=== PATIENT | male | born 1945 | race Caucasian/White ===

== ENCOUNTER → 2017-02-15 | Day surgery (SDC) | payer OTHER ==
[2017-02-07 08:38] VITALS: Ht 175.3 cm; Wt 102.3 kg
[~2017-02-15] VITALS: Ht 175.3 cm; Wt 102.3 kg
[~2017-02-15] MED LIST: AMLO-114 PO; APIX1TAB3 PO; ATOR-24 PO; BOTULINUM TOXIN TYPE A 100 UNIT VIAL XX ONE; CETI10TA84 PO; CLOP1TAB15 PO; CYAN3INJ IM; DILT240C75 PO; DOXY-300 PO; FLUN0.02 NAE; FURO40TA3 PO; GABA400C PO; INSDGI SC; INSUINJ7 SQ; LEVO25TA5 PO; LIDOCAINE HCL 2% 2 ML VIAL (20MG/ML) ONE; LISI10TA PO; METH750T PO; METO-551 PO; MULTCAP33 PO; NAPR-1169 PO; OMEP40CA41 PO; OXYC1CAP5 PO; POTA20TA16 PO; PROPOFOL IV EMULSION 10 MG/ML 20 ML VIAL IV ONE; SILD1TAB19 PO; SIMV40TA4 PO; SODIUM CHLORIDE 0.9% 500ML 500 ML IV ONE; TAMS0.4C38 PO; [UNRECOGNIZED DRUG - CODE] PO
[2017-02-15 11:27] VITALS: TEMP 36.6
--- NOTE | 2017-02-15 12:17 | Endo History and Physical ---
History & Physical Date of Service: Feb 15, 2017. Chief Complaint: Achalasia of Cardia W/Botox Referring Physician: Benito History of Present Illness achalasia Past Medical History Diabetes, Neurological Disorder, Arthritis, Reflux, High Cholesterol, Hypertension, CVA/TIA Past Surgical History Hx Cardiac Surgery: No Hx Internal Defibrillator: No Hx Pacemaker: No Hx Abdominal Surgery: No Hx of Implantable Prosthesis: No Hx Post-Op Nausea and Vomiting: No Hx Cancer Surgery: No Hx Thoracic Surgery: No Hx Orthopedic: Yes (LT SHOULDER) Hx Urinary Tract Surgery: No Family History None Social History Smoking Status: Never Smoker Hx Substance Use: No Hx Alcohol Use: No Allergies Coded Allergies: Aspirin (Verified Adverse Reaction, Unknown, dizzy, 02/15/17) Dipyridamole (Verified Adverse Reaction, Unknown, dizzy, 02/15/17) Current Medications Reported Home Medications Medications Dose Route/Sig Max Daily Dose Days Date Category Dose Instructions Diltiazem Hcl (Diltiazem Hcl Extended Release) 240 Mg Cap 1 Cap PO QAM 02/07/17 Reported Maox (Magnesium Oxide) 420 Mg Tab 1 Tab PO QAM 02/07/17 Reported Flomax (Tamsulosin Hcl) 0.4 Mg Cap 0.4 Mg PO HS 02/07/17 Reported Lipitor (Atorvastatin Calcium) 40 Mg Tab 40 Mg PO HS 02/07/17 Reported Klor-Con (Potassium Chloride) 20 Meq Tabcr 20 Meq PO QAM 02/07/17 Reported Lasix (Furosemide) 40 Mg Tab 40 Mg PO QAM 02/07/17 Reported Doxycycline (Doxycycline (Monohydrate)) 100 Mg Cap 1 Tab PO HS 02/07/17 Reported Preservision Areds (Multiple Vitamins W/ Minerals) 1 Cap Cap 1 Cap PO BID 02/07/17 Reported Eliquis (Apixaban) 5 Mg Tab 5 Mg PO BID 02/07/17 Reported Levothyroxine Sodium 25 Mcg Tab 1 Tab PO QAM 02/07/17 Reported Oxycodone Hcl 5 Mg Cap 1 Cap PO Q6H PRN 02/07/17 Reported Prilosec (Omeprazole) 40 Mg Cap 2 Cap PO BID 02/07/17 Reported Naprosyn (Naproxen) 500 Mg Tab 500 Mg PO BID PRN 02/07/17 Reported Lopressor (Metoprolol Tartrate) 50 Mg Tab 0.5 Tab PO BID 02/07/17 Reported Zocor (Simvastatin) 40 Mg Tab 40 Mg PO QAM 02/07/17 Reported Sildenafil Citrate (Sildenafil Citrate (Pulmonary) 20 Mg Tab 100 Mg PO UD PRN 02/07/17 Reported Prinivil (Lisinopril) 10 Mg Tab 2 Tabs PO QAM 02/07/17 Reported Neurontin (Gabapentin) 400 Mg Cap 2 Cap PO TID 02/07/17 Reported Zyrtec (Cetirizine HCl) 10 Mg Tab 10 Mg PO QAM 02/13/14 Reported Robaxin (Methocarbamol) 750 Mg Tab 2 Tabs PO BID 06/05/13 Reported Prinivil (Lisinopril) 10 Mg Tab 10 Mg PO QPM 06/05/13 Reported Lantus (Insulin Glargine) Vial 22 Units SC QPM 06/05/13 Reported Lantus (Insulin Glargine) Vial 16 Units SC QAM 06/05/13 Reported Novolin R (Insulin) Inj Units SQ ACHS 06/05/13 Reported PER SLIDING SCALE Flunisolide (Flunisolide (Nasal)) 0.025 % Spr 2 Sprays DESTINY DAILY PRN 06/05/13 Reported Vitamin B-12 Inj (Cyanocobalamin) Inj 1,000 Mcg IM MONTHLY 06/05/13 Reported Plavix (Clopidogrel Bisulfate) 75 Mg Tab 75 Mg PO QAM 06/05/13 Reported Norvasc (Amlodipine Besylate) 10 Mg Tab 10 Mg PO QAM 06/05/13 Reported Vital Signs Weight (Kilograms): 102.27 Height (Feet): 5 Height (Inches): 9 Date Time Temp Pulse Resp B/P (MAP) Pulse Ox O2 Delivery O2 Flow Rate FiO2 02/15/17 11:27 36.6 58 22 158/72 (100) 97 Room Air Physical Exam General Appearance: no apparent distress Respiratory/Chest: Respiratory effort: no dyspnea Cardiovascular: Heart Auscultation: RRR Abdomen: Inspection & Palpation: soft Assessment and Plan Achalasia - Botox
--- NOTE | 2017-02-15 12:36 | Anesthesiology Progress Note ---
Anesthesia Post Op Note Date & Time Feb 15, 2017 at 12:35 Vital Signs Pain Intensity: 0 Vital Signs Past 12 Hours Date Time Temp Pulse Resp B/P (MAP) Pulse Ox O2 Delivery O2 Flow Rate FiO2 02/15/17 11:27 36.6 58 22 158/72 (100) 97 Room Air Notes Mental Status: alert / awake / arousable, participated in evaluation Pt Amnestic to Procedure: Yes Nausea / Vomiting: adequately controlled Pain: adequately controlled Airway Patency, RR, SpO2: stable & adequate BP & HR: stable & adequate Hydration State: stable & adequate Anesthetic Complications: no major complications apparent
--- NOTE | 2017-02-15 12:51 | Discharge Instructions ---
Endoscopy Patient Instructions Date / Procedure(s) Performed Feb 15, 2017. EGD Allergy Information Coded Allergies: Aspirin (Verified Adverse Reaction, Unknown, dizzy, 02/15/17) Dipyridamole (Verified Adverse Reaction, Unknown, dizzy, 02/15/17) Discharge Date / Findings Feb 15, 2017. Achalasia. GEJ injected with botox. Medication Instructions Stopped Medication(s): Eliquis last taken on 02/12/17 Plavix last taken on 02/12/17 Resume Eliquis and Plavix tomorrow Provider Instructions Activity Restrictions - No exercising or heavy lifting for 24 hours. - Do not drink alcohol the day of the procedure. - Do not drive a car or operate machinery until the day after the procedure. - Do not make any important decisions or sign important papers in 24 hours after the procedure. Following Day: - Return to full activity which may include returning to work/school. Diet Start your diet with liquids and light foods (jello, soup, juice, toast). Then eat your usual diet if not nauseated. Treatment For Common After Affects For mild abdominal pain, bloating, or excessive gas: - Rest - Eat lightly - Lie on right side Follow-Up Information Follow-up with Benito as scheduled Anesthesia Information What You Should Know You have had a procedure that required some medicine to reduce anxiety and discomfort. This treatment is called moderate sedation. After receiving the treatment, you may be sleepy, but you will be able to breathe on your own. The effects of the treatment may last for several hours. Follow these instructions along with Activity/Diet recommendations noted above: * Do NOT do anything where dizziness or clumsiness would be dangerous. * Rest quietly at home today, then you can be up and about tomorrow. * Have a responsible person stay with you the rest of today. * You may have had an I.V. today. If so, you may take the dressing off later today. Recommendations Call your doctor if: * Trouble breathing * Continuous vomiting for more than 24 hours * Temperature above 101 degrees * Severe abdominal pain or bloating * Pain not relieved by pain medicine ordered * There is increased drainage or redness from any incision * A large amount of rectal bleeding greater than 2-3 tablespoons. (If you had a polyp/s removed or have hemorrhoids, a small amount of blood - from the rectum is to be expected.) * You have any unanswered questions or concerns. IN THE EVENT OF A SERIOUS EMERGENCY, GO TO THE NEAREST EMERGENCY ROOM Your discharge instructions were prepared by provider Joaquim Sweeney. Patient Instructions Signature Page Candelario Estevez Patient (or Guardian) Signature/Date: I have read and understand the instructions given to me by my caregivers. Caregiver/RN/Doctor Signature/Date: The above-named patient and/or guardian has received patient instructions on this date. + Original Patient Signature Page (only) stays with chart. Please make copy for patient.
--- NOTE | 2017-02-15 12:51 | GI REPORT ---
Procedure Date: 02/15/2017 11:59 AM Procedure: Upper GI endoscopy Indications: For botulinum toxin injection of achalasia Medicines: See the Anesthesia note for documentation of the administered medications Complications: No immediate complications. Estimated Blood Loss: Estimated blood loss: none. Procedure: Pre-Anesthesia Assessment: - ASA Grade Assessment: III - A patient with severe systemic disease. After obtaining informed consent, the endoscope was passed under direct vision. Throughout the procedure, the patient's blood pressure, pulse, and oxygen saturations were monitored continuously. The scope was introduced through the mouth, and advanced to the second part of duodenum. The upper GI endoscopy was accomplished without difficulty. The patient tolerated the procedure well. - Prior to the procedure, risks of botox injection were reviewed, including dysphagia, dysarthria. Findings: The GE junction was at 40 cm. There was a mild ring at the GE junction. The esophagus did not appear dilated; there was no fluid in the esophagus. A few tertiary contractions were seen. The stomach and duodenum were normal. 100 units of Botox in 4 cc of saline were injected in 1 cc aliquots in 4 quadrants at the GE junction. Impression: - Ring at GE junction. GE junction injected with Botox. Recommendation: - Discharge patient to home. Joaquim Oliver M.D. Joaquim Oliver MD 02/15/2017 12:50:54 PM This report has been signed electronically. Note Initiated On: 02/15/2017 11:59 AM I attest to the content of the Intraoperative Record and orders documented therein, exceptions below
[2017-02-15 12:58] VITALS: BP 151/74; PULSE 65; O2SAT 94
== END | disposition home or self-care (01) ==
LOC: C.GI 10:15
PROVIDERS: ATTEND Internal Medicine Gastroenterology
DX: K22.0 Achalasia of cardia (principal); E11.9 Type 2 diabetes mellitus without complications; M19.90 Unspecified osteoarthritis, unspecified site; E78.00 Pure hypercholesterolemia, unspecified; I10 Essential (primary) hypertension; Z86.73 Personal history of transient ischemic attack (TIA), and cerebral infarction without residual deficits; Z79.899 Other long term (current) drug therapy; Z79.4 Long term (current) use of insulin; Z79.02 Long term (current) use of antithrombotics/antiplatelets

== ENCOUNTER 2019-09-16 05:44 | Inpatient (IN) ==
--- NOTE | 2019-09-05 09:42 | PAT Medication Instructions ---
Medication Instructions Date of Service September 05, 2019 Home Medications Medications Eucerin 1 applic TOPICAL BID PRN 03/26/18 [History Confirmed 08/28/19] Lantus U-100 Insulin 20 unit SUBCUT BID 03/26/18 [History Confirmed 08/28/19] apixaban 5 mg PO BID 03/26/18 [History Confirmed 08/28/19] atorvastatin 20 mg PO HS 03/26/18 [History Confirmed 08/28/19] clopidogrel 75 mg PO QAM 03/26/18 [History Confirmed 08/28/19] diclofenac sodium 2 g TOPICAL BID PRN 03/26/18 [History Confirmed 08/28/19] diltiazem HCl 120 mg PO QAM 03/26/18 [History Confirmed 08/28/19] levothyroxine [Synthroid] 25 mcg PO QAM 03/26/18 [History Confirmed 08/28/19] lidocaine 1 dose TOPICAL UD PRN 03/26/18 [History Confirmed 08/28/19] metoprolol tartrate 50 mg PO QAM 03/26/18 [History Confirmed 08/28/19] omeprazole 40 mg PO BID 03/26/18 [History Confirmed 08/28/19] oxycodone 5 mg PO 5XD PRN 03/26/18 [History Confirmed 08/28/19] tamsulosin 0.4 mg PO HS 03/26/18 [History Confirmed 08/28/19] Ocuvite with Lutein 1 tab PO BID 01/09/19 [History Confirmed 08/28/19] bumetanide 0.5 mg PO QAM 08/28/19 [History Confirmed 08/28/19] cyanocobalamin (vitamin B-12) 1,000 mcg PO QAM 08/28/19 [History Confirmed 08/28/19] empagliflozin 25 mg PO QAM 08/28/19 [History Confirmed 08/28/19] gabapentin 800 mg PO BID 08/28/19 [History Confirmed 08/28/19] lisinopril 10 mg PO BID 08/28/19 [History Confirmed 08/28/19] metformin 500 mg PO QAM 08/28/19 [History Confirmed 08/28/19] Take morning of surgery With a small sip of water, OTHERWISE NOTHING TO EAT OR DRINK AFTER MIDNIGHT: Insulin Dependent Diabetic Patients * Test your blood sugar the morning of surgery * If Blood Sugar is GREATER THAN 150, take HALF of your regular dose of: * If Blood Sugar is LESS THAN 150, DO NOT TAKE ANY: Other Notes If you have any questions please call us at [phone] or [phone] or or [phone]
--- NOTE | 2019-09-05 09:48 | PAT Medication Instructions ---
Medication Instructions Date of Service September 05, 2019 Home Medications Eucerin 1 applic TOPICAL BID PRN Lantus U-100 Insulin 20 unit SUBCUT BID apixaban 5 mg PO BID atorvastatin 20 mg PO HS clopidogrel 75 mg PO QAM diclofenac sodium 2 g TOPICAL BID PRN diltiazem HCl 120 mg PO QAM levothyroxine [Synthroid] 25 mcg PO QAM lidocaine 1 dose TOPICAL UD PRN metoprolol tartrate 50 mg PO QAM omeprazole 40 mg PO BID oxycodone 5 mg PO 5XD PRN tamsulosin 0.4 mg PO HS Ocuvite with Lutein 1 tab PO BID bumetanide 0.5 mg PO QAM cyanocobalamin (vitamin B-12) 1,000 mcg PO QAM empagliflozin 25 mg PO QAM gabapentin 800 mg PO BID lisinopril 10 mg PO BID metformin 500 mg PO QAM ASK your prescriber and surgeon clopidogrel 75 mg PO QAM apixaban 5 mg PO BID STOP taking 2 weeks before surgery Ocuvite with Lutein 1 tab PO BID STOP taking 24 hours before surgery lidocaine 1 dose TOPICAL UD PRN diclofenac sodium 2 g TOPICAL BID PRN Eucerin 1 applic TOPICAL BID PRN DO NOT take the morning of surgery metformin 500 mg PO QAM lisinopril 10 mg PO BID empagliflozin 25 mg PO QAM bumetanide 0.5 mg PO QAM cyanocobalamin (vitamin B-12) 1,000 mcg PO QAM Take morning of surgery With a small sip of water, OTHERWISE NOTHING TO EAT OR DRINK AFTER MIDNIGHT: gabapentin 800 mg PO BID metoprolol tartrate 50 mg PO QAM omeprazole 40 mg PO BID oxycodone 5 mg PO 5XD PRN (okay to take up to 4 hours prior to surgery if needed) diltiazem HCl 120 mg PO QAM levothyroxine [Synthroid] 25 mcg PO QAM Take evening before surgery gabapentin 800 mg PO BID lisinopril 10 mg PO BID omeprazole 40 mg PO BID oxycodone 5 mg PO 5XD PRN (if needed) tamsulosin 0.4 mg PO HS atorvastatin 20 mg PO HS Lantus U-100 Insulin 20 unit SUBCUT BID Insulin Dependent Diabetic Patients * Test your blood sugar the morning of surgery * If Blood Sugar is GREATER THAN 150, take HALF of your regular dose of: Lantus U-100 Insulin (10 units) * If Blood Sugar is LESS THAN 150, DO NOT TAKE ANY: Lantus U-100 Insulin * Other Notes If you have any questions please call us at [phone] or [phone] or [phone] or [phone]
--- NOTE | 2019-09-05 10:14 | Anesthesiology Consultation ---
Date of Service September 05, 2019 Assessment & Plan (1) Encounter for pre-operative examination: Chart Review Chart Review: Acceptable Risk for Surgery and Patient seen in Pre Admission Testing Seen by cardio 08/20/19= Lisinopril decreased to 10mg BID and Cardizem CD dose increased for better rate control. ECHO ordered. Pt did have episode of syncope when leaving (BP med was decreased). Addendum to note on 08/22/19- ECHO reviewed- "He should be cleared at low risk from a cardiac standpoint for upcoming cervical spine surgery." Seen by PCP 07/04/19= DM not optimally controlled at that time. Metformin initiated. CKD stage III -stable. Ongoing cervical spine stenosis with persistent pain. On Plavix due to CVA history. F/u six months History Surgery Operation Date: 09/16/19 07:45 Proposed Procedures p C3-C4 Anterior Cervical Discectomy Fusion, Possible C4-C8 Hardware Removal, Spinal Cord Monitoring - Seymour Valerio, Height/Weight Height: 5 ft 9 in Weight: 88.5 kg Allergies Allergy/AdvReac Type Severity Reaction Status Date / Time No Known Allergies Allergy Verified 02/07/19 11:31 Medications Home Medications Medication Instructions Recorded Confirmed Last Taken Eucerin 1 applic TOPICAL BID PRN 03/26/18 08/28/19 03/29/18 Lantus U-100 Insulin 20 unit SUBCUT BID 03/26/18 08/28/19 01/24/19 apixaban 5 mg PO BID 03/26/18 08/28/19 01/23/19 atorvastatin 20 mg PO HS 03/26/18 08/28/19 01/24/19 clopidogrel 75 mg PO QAM 03/26/18 08/28/19 01/23/19 diclofenac sodium 2 g TOPICAL BID PRN 03/26/18 08/28/19 03/23/18 diltiazem HCl 120 mg PO QAM 03/26/18 08/28/19 01/25/19 levothyroxine [Synthroid] 25 mcg PO QAM 03/26/18 08/28/19 01/25/19 lidocaine 1 dose TOPICAL UD PRN 03/26/18 08/28/19 03/27/18 metoprolol tartrate 50 mg PO QAM 03/26/18 08/28/19 01/25/19 omeprazole 40 mg PO BID 03/26/18 08/28/19 01/25/19 oxycodone 5 mg PO 5XD PRN 03/26/18 08/28/19 01/24/19 21:00 tamsulosin 0.4 mg PO HS 03/26/18 08/28/19 01/23/19 Ocuvite with Lutein 1 tab PO BID 01/09/19 08/28/19 01/23/19 bumetanide 0.5 mg PO QAM 08/28/19 08/28/19 Unknown cyanocobalamin (vitamin B-12) 1,000 mcg PO QAM 08/28/19 08/28/19 Unknown empagliflozin 25 mg PO QAM 08/28/19 08/28/19 Unknown gabapentin 800 mg PO BID 08/28/19 08/28/19 Unknown lisinopril 10 mg PO BID 08/28/19 08/28/19 Unknown metformin 500 mg PO QAM 08/28/19 08/28/19 Unknown Past Medical History Medical History Atrial fibrillation CURRENTLY CONTROLLED Chronic back pain CKD (chronic kidney disease) stage 3, GFR 30-59 ml/min Diabetes mellitus, type 2 IDDM GERD (gastroesophageal reflux disease) CURRENTLY CONTROLLED Hyperlipidemia Hypertension Hypothyroidism On anticoagulant therapy per pt he is on Plavix and Eliquis Osteoarthritis Stroke 2013 per PCP note- no residual deficits - on Plavix Past Family History Family History Father No problems noted. Mother No problems noted. Other No family history of adverse response to anesthesia Past Surgical History Surgical History History of bilateral cataract extraction History of colonoscopy History of esophagogastroduodenoscopy (EGD) with dilation due to Schatzki's ring History of repair of left rotator cuff X 2 History of tooth extraction wisdom teeth Status post cervical spinal fusion normal rom Past Anesthesia History No Hx of Anesthesia Complications and No Family Hx of Anesthesia Complications History of PONV No Hx of PONV and No Hx of Motion Sickness Social History Smoking Status: Never smoker Do You Dip or Chew Tobacco: No Hx Alcohol Use: No Hx Substance Use: No substance use type: does not use Review of Systems Patient denies chest pain, shortness of breath, dyspnea on exertion, cough, wheezing, palpitations. No hx of seizures, GA, apnea/snoring. No hx of blood clots or blood transfusions Physical Exam Vital Signs VITALS BP 130/66 P 55 TEMP 98.3 SP02 100% RESP 16 Constitutional no acute distress ENMT Mouth: no TMJ clicking, no chipped teeth and no loose teeth Thyromental Distance: > or= 3.5 Finger Breadths (3.5) Mallampati Class: III Denies missing teeth Neck + limited neck extension (significant ) Respiratory normal respiratory effort; no respiratory distress Auscultation: lungs clear to auscultation bilaterally; no wheezes Cardiovascular Rate/Rhythm: regular rate and regular rhythm Heart Sounds: no murmur Vessels: no carotid bruit Heart sounds diminished throughout Musculoskeletal Spine: + pain with cervical ROM Neurologic moves all extremities Psychiatric Orientation: alert Testing Laboratory Results 09/05/19 09:53 09/05/19 09:53 PT 11.5 Seconds (9.0-12.0) 09/05/19 09:53 INR 1.1 (0.9-1.1) 09/05/19 09:53 APTT 31.3 Seconds (21.0-31.0) H 09/05/19 09:53 Urine Color Yellow 09/05/19 09:53 Urine Appearance Clear (Clear) 09/05/19 09:53 Urine pH 5.0 (4.5-7.5) 09/05/19 09:53 Ur Specific Bennett 1.015 (1.000-1.030) 09/05/19 09:53 Urine Protein Negative (Negative) 09/05/19 09:53 Urine Glucose (UA) 3+ (Negative) H 09/05/19 09:53 Urine Ketones Negative (Negative) 09/05/19 09:53 Urine Nitrite Negative (Negative) 09/05/19 09:53 Ur Leukocyte Esterase Negative (Negative) 09/05/19 09:53 Blood Type A Negative 09/05/19 09:53 Antibody Screen NEGATIVE 09/05/19 09:53 09/02/19= WBC: 4.2 Hgb: 11.0 Hct: 33.0 HGB A1C: 6.9 Electrocardiogram Date: 08/06/19 Findings: + AFIB @ (74) Nonspecific ST abnormality . Compared to EKG from Feb 08, 2019- a fib has replaced SR. LAFB no longer present. Chest X-Ray Date: 08/20/19 Findings: + NAD Echocardiogram Date: 08/20/19 EF: 55-60% LV Function: normal Valvular Disease: + no significant valvular disease LA moderately dilated.
[2019-09-05 10:54] LABS: Basophils % (auto) 0.6 %; Eosinophils % (auto) 4.5 %; Hemoglobin 10.7 g/dL (14.0-18.0); Immature Granulocytes % (auto) 0.3 %; Lymphocytes % (auto) 27.8 %; Mean Corpuscular Hemoglobin 29.4 pg (25-34); Mean Corpuscular Hgb Conc 33.4 g/dL (32-36); Mean Corpuscular Volume 87.9 fL (80-100); Mean Platelet Volume 9.6 fL (7.4-10.4); Monocytes % (auto) 6.7 %; Neutrophils # (auto) 2.14 K/uL (1.4-6.5); Neutrophils % (auto) 60.1 %; Platelet Count 211 K/uL (130-400); RDW Coefficient of Variation 14.4 % (11.5-14.5); RDW Standard Deviation 46.3 fL (36.4-46.3); Red Blood Count 3.64 M/uL (4.7-6.1); White Blood Count 3.56 K/uL (4.8-10.8)
[2019-09-05 10:55] LABS: Basophils # (auto) 0.02 K/uL (0-0.2); Eosinophils # (auto) 0.16 K/uL (0-0.5); Immature Granulocytes # (auto) 0.01 K/uL (0.00-0.02); Lymphocytes # (auto) 0.99 K/uL (1.2-3.4); Monocytes # (auto) 0.24 K/uL (0.11-0.59)
[2019-09-05 11:02] LABS: BUN Creatinine Ratio 15.3 (10-20); Calcium 8.5 mg/dl (8.5-10.1); Creatinine Clr Calc Pharmacy 52.9 ml/min; Est GFR (African American) 58.3; Est GFR (Non-African American) 50.3; Potassium 3.6 mmol/L (3.5-5.1)
[2019-09-05 11:06] LABS: Appearance Urine Clear (Clear); Bilirubin Urine Negative (Negative); Blood Urine Negative (Negative); Color Urine Yellow; Glucose Urine UA 3+ (Negative); Ketones Urine Negative (Negative); Leukocyte Esterase Urine Negative (Negative); Nitrite Urine Negative (Negative); Protein Urine Negative (Negative); Specific Gravity Urine 1.015 (1.000-1.030); Urobilinogen Urine Negative (Negative)
[2019-09-05 11:08] LABS: INR 1.1 (0.9-1.1); Partial Thromboplastin Ratio 1.1; Partial Thromboplastin Time 31.3 Seconds (21.0-31.0); Prothrombin Time 11.5 Seconds (9.0-12.0)
--- NOTE | 2019-09-11 11:07 | History & Physical Report ---
Date of Service September 11, 2019 Assessment & Plan (1) Myelopathy concurrent with and due to spinal stenosis of cervical region: At this time the patient is demonstrating evidence of advanced cervical myelopathy and decline in function. Subsequently I am recommending urgent anterior cervical discectomy and fusion at C3-C4 with possible removal of instrumentation from C4-C6. Hopefully decompression of the cervical canal and relief of pressure on the spinal cord will halt the progression of his myelopathy and with time perhaps improve his upper extremity function and balance. Risk benefits pros cons and alternatives were outlined in detail. This time the right of surgery range performed soon as possible. Present on Admission?: Yes History of Present Illness Chief Complaint: Bilateral upper extremity lower extremity weakness Primary Care Provider: NO PCP This is a 74-year-old male well-known to us having undergone a previous cervical surgery many years ago. He presents with marked decline in status over the past several months with progressive weakness of the bilateral upper extremities lower extremities and marked decline in balance. In fact he had a recent fall injuring his right upper extremity. Allergies Allergy/AdvReac Type Severity Reaction Status Date / Time No Known Allergies Allergy Verified 02/07/19 11:31 Home Medications Home Medications Medication Instructions Recorded Confirmed Type Eucerin 1 applic TOPICAL BID PRN 03/26/18 08/28/19 History Lantus U-100 Insulin 20 unit SUBCUT BID 03/26/18 08/28/19 History apixaban 5 mg PO BID 03/26/18 08/28/19 History atorvastatin 20 mg PO HS 03/26/18 08/28/19 History clopidogrel 75 mg PO QAM 03/26/18 08/28/19 History diclofenac sodium 2 g TOPICAL BID PRN 03/26/18 08/28/19 History diltiazem HCl 120 mg PO QAM 03/26/18 08/28/19 History levothyroxine [Synthroid] 25 mcg PO QAM 03/26/18 08/28/19 History lidocaine 1 dose TOPICAL UD PRN 03/26/18 08/28/19 History metoprolol tartrate 50 mg PO QAM 03/26/18 08/28/19 History omeprazole 40 mg PO BID 03/26/18 08/28/19 History oxycodone 5 mg PO 5XD PRN 03/26/18 08/28/19 History tamsulosin 0.4 mg PO HS 03/26/18 08/28/19 History Ocuvite with Lutein 1 tab PO BID 01/09/19 08/28/19 History bumetanide 0.5 mg PO QAM 08/28/19 08/28/19 History cyanocobalamin (vitamin B-12) 1,000 mcg PO QAM 08/28/19 08/28/19 History empagliflozin 25 mg PO QAM 08/28/19 08/28/19 History gabapentin 800 mg PO BID 08/28/19 08/28/19 History lisinopril 10 mg PO BID 08/28/19 08/28/19 History metformin 500 mg PO QAM 08/28/19 08/28/19 History Past Med/Surg History Medical History Atrial fibrillation CURRENTLY CONTROLLED Chronic back pain CKD (chronic kidney disease) stage 3, GFR 30-59 ml/min Diabetes mellitus, type 2 IDDM GERD (gastroesophageal reflux disease) CURRENTLY CONTROLLED Hyperlipidemia Hypertension Hypothyroidism On anticoagulant therapy per pt he is on Plavix and Eliquis Osteoarthritis Stroke 2013 per PCP note- no residual deficits - on Plavix Surgical History History of bilateral cataract extraction History of colonoscopy History of esophagogastroduodenoscopy (EGD) with dilation due to Schatzki's ring History of repair of left rotator cuff X 2 History of tooth extraction wisdom teeth Status post cervical spinal fusion normal rom Family History Father No problems noted. Mother No problems noted. Other No family history of adverse response to anesthesia Social History Preferred Language: Pashto Communication Ability: Effective Insulation Helper Required: No Beliefs That Will Affect Care: None Current Living Situation: Spouse Current Living Situation Comment: Other Information That Helps Us Care for You: No Feels Safe at Home: Yes Safety Concerns: Feels Safe At This Time Smoking Status: Never smoker Do You Dip or Chew Tobacco: No ; Second Hand Exposure: No ; Hx Alcohol Use: No Hx Substance Use: No Physical Exam Physical Exam: Patient is alert and oriented Patient exhibits a widened gait ambulation. He has limitations with cervical range of motion. He exhibits bilateral Ovidio sign to the upper extremities. No Spurling sign. He does have weakness to bilateral grasp biceps and triceps. Heart is regular rate and rhythm Lungs clear to auscultation Results & Data Diagnostic Findings X-rays of the cervical spine including flexion-extension views do demonstrate marked anterior listhesis at C3-C4 with solid fusion at C4-C6. MRI also available demonstrates decompression from C4-C6 but severe spinal stenosis with flattening of the cervical spinal cord at C3-C4.
[2019-09-16] MEDS ORDERED: GABAPENTIN 300 MG CAP PO SCH (06:00)
[2019-09-16] MEDS ORDERED: ACETAMINOPHEN 500 MG TAB PO SCH (06:00)
[2019-09-16] MEDS ORDERED: CeleBREX 200 MG CAP PO SCH (06:00)
[2019-09-16] MEDS ORDERED: CEFAZOLIN 2000MG 2,000 MG/15 ML SYR IV SCH (06:00)
[2019-09-16] MEDS ORDERED: LR 15ML/HR IV SCH (06:00)
[2019-09-16] MEDS ORDERED: ONDANSETRON INJ 2 MG/ML 2 ML VIAL ONE (06:58)
[2019-09-16] MEDS ORDERED: NEOSTIGMINE METHYLSULFATE 5 MG/5 ML SYR ONE (06:58)
[2019-09-16] MEDS ORDERED: PHENYLEPHRINE HCL 10 MG/ML VIAL ONE (06:58)
[2019-09-16] MEDS ORDERED: PHENYLEPHRINE 100MCG/ML 5ML SYR ONE (06:58)
[2019-09-16] MEDS ORDERED: ROCURONIUM BROMIDE 10 MG/ML 5 ML VIAL ONE (06:58)
[2019-09-16] MEDS ORDERED: PROPOFOL IV EMULSION 10 MG/ML 20 ML VIAL IV ONE (06:58)
[2019-09-16] MEDS ORDERED: fentaNYL citrate 100 MCG/2 ML VIAL ONE ×2 (06:58→10:28)
[2019-09-16] MEDS ORDERED: GLYCOPYRROLATE 0.2 MG/ML VIAL ONE (06:58)
[2019-09-16] MEDS ORDERED: LIDOCAINE HCL 2% 2 ML VIAL/AMP(20MG/ML) INFIL ONE (06:58)
[2019-09-16] MEDS ORDERED: BACITRACIN INJ 50,000 UNIT VIAL ONE (06:59)
[2019-09-16] MEDS ORDERED: ROCURONIUM BROMID 50MG/5ML SYR ONE (07:09)
[2019-09-16] MEDS ORDERED: DexMEDEtomidine HCL IV 100 MCG/ML VIAL ONE (07:10)
--- NOTE | 2019-09-16 07:33 | History & Physical Bridge Note ---
Date of Service September 16, 2019 History & Physical Bridge Note I have examined the patient, reviewed the History & Physical and in the interval since the performance of the History & Physical I have noted the following changes of clinical significance: no changes noted
[2019-09-16] MEDS ORDERED: FLOSEAL HEMOSTATIC MATRIX 10ML TOP ONE (08:40)
[2019-09-16] MEDS ORDERED: HYDROmorphone INJ 2 MG/ML SYR/VIAL IV PRN (09:03)
[2019-09-16] MEDS ORDERED: ATROPINE SULFATE 0.1 MG/ML 10ML SYR IV PRN (09:03)
[2019-09-16] MEDS ORDERED: ONDANSETRON INJ 2 MG/ML 2 ML VIAL IV PRN ×2 (09:03→11:27)
[2019-09-16] MEDS ORDERED: ePHEDrine sulfate 50 MG/ML AMP IV PRN (09:03)
--- NOTE | 2019-09-16 09:32 | Operative Report ---
Post Operative Report Pre & Post Diagnosis Operation Date: 09/16/19 07:45 Pre-Op Diagnosis: Cervical spinal stenosis with myeloradiculopathy Post-Op Diagnosis: Same I identified the patient and participated in the time-out.: Yes Procedure Operation Date: 09/16/19 07:45 Actual Procedures #1 anterior cervical discectomy with bilateral foraminotomies C3-C4. #2 anterior cervical arthrodesis C3-C4. #3 placement of globus interbody cage 9 mm in height fixed with 18 mm screws. Surgeon Seymour Valerio, Shingle Packer Marguerite Carver Estimated Blood Loss 10 Findings Consistent with Post-Op Diagnosis Specimens None Indications This is a 74-year-old male well-known to me that presents with progressive myelopathic symptoms and subsequently we elected undergo urgent surgery. Description of Procedure Patient was met with identified informed consent obtained. Patient was then taken to the operative suite underwent an patient placed in supine position check stable head Correa head ordered. All bony prominences well-padded eyes inspected to ensure no external pressure placed upon the. This point the anterior cervical spine was prepped and draped in neurological fashion. With the assistance of fluoroscopy identified the C3-4 level and a transverse incision was placed along the right anterior aspect of the cervical spine overlying this region. Sharp dissection with the assistance of bipolar electrocautery performed down to and exposing the anterior cervical spine at C3-C4. A self-retaining retractor was placed. I then performed a complete discectomy of C3-4 out to the uncovertebral joints bilaterally. I then removed all posterior annular fibers and longitudinal ligament perform bilateral foraminotomies. The endplates were then burred to subcortical bleeding bone. A 9 mm globus interbody cage filled with DBM was tapped in position and screwed into place with 18 mm screws. The incision was then copiously irrigated explored to ensure no damage to surrounding structures or remaining bleeding. 10 round ALBERT drain inserted. Incision was then closed with 2 Vicryl in a fashion of 4 Monocryl for final skin closure. Steri-Strip sterile dressings placed. Patient will continue PACU stable condition. Please note Marguerite Carver was present at the entire procedure about the patient positioning complex portions of the surgery and final skin closure. Lastly spinal cord monitoring was utilized that the procedure no changes noted. I attest to the content of the Intraoperative Record and any orders documented therein. Any exceptions are noted below.
--- NOTE | 2019-09-16 09:45 | Fluoroscopy Report ---
FL cervical 2-3V HISTORY: 74 years-old Male C3-C4 ANTERIOR CERVICAL DISCECTOMY FUSION COMPARISON: Cervical spine radiographs 06/14/2013 TECHNIQUE: 2 spot fluoroscopic images of the cervical spine were obtained utilizing 10.4 seconds fluo roscopy time FINDINGS: Anterior plate and screw fusion hardware is redemonstrated at the C4-C6 levels. Interval discectomy w ith small anterior plate and screw fusion at the C3-C4 interspace. Alignment appears satisfactory and the hardware appears intact on these images. Multilevel spondylitic spurring and facet arthrosis. An apparent endotracheal tube overlies the midline. IMPRESSION: Fluoroscopic assistance as above. Please see operative report for further details. ACT 112: Negative or not required by law. The above report was generated using voice recognition software. It may contain grammatical, syntax o r spelling errors. Electronically signed by: Misael Slater M.D. 09/16/2019 9:44 AM
[2019-09-16] MEDS: fentaNYL citrate 100 MCG/2 ML VIAL IV PRN ×2 (10:29→10:36)
--- NOTE | 2019-09-16 10:43 | Anesthesiology Progress Note ---
Date of Service September 16, 2019 Anesthesia Post Procedure Vital Signs Vital Signs: Temp Pulse Pulse Resp BP Pulse Ox 09/16/19 10:30 54 L 12 125/60 100 09/16/19 10:20 52 L 12 125/57 L 100 09/16/19 10:10 51 L 10 L 131/59 L 100 09/16/19 10:01 36.0 C L 61 14 123/57 L 100 09/16/19 06:47 36.5 C 77 18 140/79 99 Pain Intensity Anterior Neck: Pain Intensity: 6 Transfer of Care Handoff Completed per policy Notes Mental Status: alert / awake / arousable and participated in evaluation Patient Amnestic to Procedure: Yes Nausea / Vomiting: adequately controlled Pain: adequately controlled Airway Patency, RR, SpO2: stable & adequate BP & HR: stable & adequate Hydration State: stable & adequate Anesthetic Complications: no major complications apparent and Pt Satisfied with anesthetic care
[2019-09-16] MEDS ORDERED: LORazepam 0.5 MG TAB PO PRN (11:27)
[2019-09-16] MEDS ORDERED: ONDANSETRON 4 MG OD TAB PO PRN (11:27)
[2019-09-16] MEDS ORDERED: OXYCODONE IR HOME PACK PO PRN (11:27)
[2019-09-16] MEDS ORDERED: MAGNESIUM HYDROXIDE SUSP 30 ML UDC PO PRN (11:27)
[2019-09-16] MEDS ORDERED: LORazepam 0.5 MG/1 ML VIAL IV PRN (11:27)
[2019-09-16] MEDS ORDERED: METOCLOPRAMIDE HCL INJ 5 MG/ML 2 ML VIAL IV PRN (11:27)
[2019-09-16] MEDS ORDERED: HYDROmorphone INJ 0.5 MG/0.5 ML SYR IV PRN (11:27)
[2019-09-16] MEDS ORDERED: EUCERIN CR 120 GM JAR TOP PRN (11:27)
[2019-09-16] MEDS ORDERED: TRAMADOL HCL 50 MG TABLET PO PRN (11:27)
[2019-09-16] MEDS ORDERED: ALUMINUM/MAGNESIUM SUSP 30 ML UDC PO PRN (11:27)
[2019-09-16] MEDS ORDERED: PROMETHAZINE HCL 12.5 MG in SODIUM CHLORIDE 0.9% 50 ML IV PRN (11:27)
[2019-09-16] MEDS ORDERED: ACETAMINOPHEN 1,000 MG/100 ML VIAL IV PRN (11:27)
[2019-09-16] MEDS ORDERED: ACETAMINOPHEN 500 MG TAB PO PRN (11:27)
[2019-09-16] MEDS ORDERED: SOD PHOSPHATE/SOD BIPHOSPHATE ENEMA 132 ML BTL PR PRN (11:27)
[2019-09-16] MEDS ORDERED: HYDROmorphone INJ 1 MG/ML SYRINGE IV PRN (11:27)
[2019-09-16] MEDS ORDERED: DO NOT ADMINISTER FLU VACCINE PRN (11:27)
[2019-09-16] MEDS ORDERED: FAMOTIDINE 20 MG TAB PO PRN (11:27)
[2019-09-16] MEDS ORDERED: DEXAMETHASONE SOD PHOSPHATE 8 MG in SYRINGE 0 ML IV PRN (11:27)
[2019-09-16] MEDS ORDERED: RACEPINEPHRINE 2.25% NEBU SOLN 0.5 ML VIAL INH PRN (11:27)
[2019-09-16] MEDS ORDERED: DO NOT ADMINISTER PNEUMOCOCCAL VACCINE PRN (11:27)
[2019-09-16] MEDS ORDERED: NALOXONE HCL 0.4 MG/1 ML VIAL/CARP IV PRN (11:27)
[2019-09-16] MEDS: SODIUM CHLORIDE 0.9% 1000ML 1,000 ML IV SCH ×2 (11:54→22:23)
[2019-09-16] MEDS ORDERED: COUGH DROP (SUGAR FREE) LOZ 24 LOZ/1 BOX BUCCAL ONE (14:44)
--- NOTE | 2019-09-16 14:47 | Consultation ---
Date of Consultation September 16, 2019 Assessment & Plan (1) S/P cervical discectomy: Post op day# 0 S/P C3-C4 discectomy by Dr Valerio Post op reports pain controlled, c/o sore throat. Denies dysphagia EBL#10ml -pain management per ortho -wound management per ortho -PT/OT as appropriate -DVT prophylaxis per ortho -monitor H&H for acute blood loss anemia; pre-op Hgb: 10.7 (2) Chronic atrial fibrillation: On Eliquis Rate controlled -Eliquis on hold, to resume when able per ortho spine -Continue metoprolol (3) HTN (hypertension): Stable -Continue diltiazem, metoprolol -hold Lisinopril, bumetanide at this time (4) Diabetes mellitus, type 2: Insulin dependent A1c: 8.1 in 06/2019 reported in PCP notes -Hold metformin, Jardiance -Continue home Lantus -NovoLog sliding scale per protocol (5) Stroke: No residual reported -Plavix on hold, plan to resume when able per ortho spine (6) CKD (chronic kidney disease), stage III: Preop Cr: 1.39 -Avoid nephrotoxic agents when possible -Monitor renal functions (7) Chronic anemia: Preop hemoglobin: 10.7 -Monitor H&H (8) BPH (benign prostatic hyperplasia): -Continue tamsulosin (9) Hypothyroidism: -Continue levothyroxine DVT Prophylaxis -SCDs per ortho Disposition per primary service Follows with Dr Krueger, [facility] for routine care Pt was seen and care coordinated with Dr Amaya. See addendum Supervising Physician Co-Signing Physician Notes I have seen and examined the patient and have discussed the case with the provider above. I agree with the assessment and plan as stated. 74 yo M s/p anterior cervical discectomy and fusion, doing well post-operatively. Glucose at goal. Pain under control. BP slightly elevated so will resume lisinopril and Bumex per home regimen, initially held out of concern for post op hypotension. Physical exam as above. Denies radiculopathy or decreased sensation in hands. Thank you for the consultation. DO Jose Luis History of Present Illness Requesting Physician: Dr Valerio Reason for Consultation: Post op medical management Attending Physician: Seymour Valerio DO History of Present Illness Pt is 74 y/o M with PMH chronic atrial fibrillation on Eliquis, HTN, insulin-dependent DM II, CVA, CKD III, BPH, hepatic steatosis, chronic anemia, hypothyroidism, GERD seen in medical consultation s/p C3-C4 discectomy today by Dr Valerio. Post op pt reports pain controlled and states no pain or paresthesias to upper extremities. Reports throat feels sore. Able to swallow secretions and drink water without any reported choking. Denies N/V/D, fever/chills, diaphoresis, [place], dizziness, syncope, vision changes, CP, SOB, orthopnea, palpitations, cough, otalgia, rhinorrhea, abdominal pain, paresthesias, extremity weakness, extremity edema, rashes, urinary symptoms. Allergies Allergy/AdvReac Type Severity Reaction Status Date / Time No Known Allergies Allergy Verified 09/16/19 06:31 Home Medications Home Medications Medication Instructions Recorded Confirmed Type Eucerin 1 applic TOPICAL BID PRN 03/26/18 09/16/19 History Lantus U-100 Insulin 20 unit SUBCUT BID 03/26/18 09/16/19 History apixaban [Eliquis] 5 mg PO BID 03/26/18 09/16/19 History atorvastatin 20 mg PO HS 03/26/18 09/16/19 History clopidogrel [Plavix] 75 mg PO QAM 03/26/18 09/16/19 History diclofenac sodium [Voltaren] 2 g TOPICAL BID PRN 03/26/18 09/16/19 History levothyroxine [Synthroid] 25 mcg PO QAM 03/26/18 09/16/19 History lidocaine 1 dose TOPICAL UD PRN 03/26/18 09/16/19 History metoprolol tartrate [Lopressor] 50 mg PO QAM 03/26/18 09/16/19 History omeprazole 40 mg PO BID 03/26/18 09/16/19 History oxycodone 5 mg PO 5XD PRN 03/26/18 09/16/19 History tamsulosin 0.4 mg PO HS 03/26/18 09/16/19 History Ocuvite with Lutein 1 tab PO BID 01/09/19 09/16/19 History bumetanide 0.5 mg PO QAM 08/28/19 09/16/19 History cyanocobalamin (vitamin B-12) 1,000 mcg PO QAM 08/28/19 09/16/19 History empagliflozin [Jardiance] 25 mg PO QAM 08/28/19 09/16/19 History gabapentin 800 mg PO BID 08/28/19 09/16/19 History lisinopril [Zestril] 10 mg PO BID 08/28/19 09/16/19 History metformin 500 mg PO QAM 08/28/19 09/16/19 History diltiazem HCl [Cardizem CD] 180 mg PO DAILY 09/16/19 09/16/19 History oxycodone 5 mg PO Q6H PRN #10 tab 09/16/19 Rx tramadol 50 mg PO Q6H PRN #10 tab 09/16/19 Rx Patient History Medical History (Updated 09/16/19 @ 16:54 by Sadaf Nascimento PA-C) Atrial fibrillation CURRENTLY CONTROLLED BPH (benign prostatic hyperplasia) Chronic anemia Chronic back pain CKD (chronic kidney disease) stage 3, GFR 30-59 ml/min CKD (chronic kidney disease), stage III Diabetes mellitus, type 2 IDDM GERD (gastroesophageal reflux disease) CURRENTLY CONTROLLED Hyperlipidemia Hypertension Hypothyroidism On anticoagulant therapy per pt he is on Plavix and Eliquis Osteoarthritis Stroke 2012 per PCP note- no residual deficits - on Plavix Surgical History (Updated 09/16/19 @ 15:05 by Sadaf Nascimento PA-C) History of bilateral cataract extraction History of colonoscopy History of esophagogastroduodenoscopy (EGD) with dilation due to Schatzki's ring History of repair of left rotator cuff X 2 History of tooth extraction wisdom teeth Status post cervical spinal fusion normal rom Family History Father No problems noted. Mother No problems noted. Other No family history of adverse response to anesthesia Social History Preferred Language: Lithuanian Communication Ability: Effective Respiratory Scientist Required: No Beliefs That Will Affect Care: None Current Living Situation: Spouse Current Living Situation Comment: Other Information That Helps Us Care for You: No Feels Safe at Home: Yes Safety Concerns: Feels Safe At This Time Smoking Status: Never smoker Do You Dip or Chew Tobacco: No ; Second Hand Exposure: No ; Hx Alcohol Use: No Hx Substance Use: No Review of Systems Review of Systems: All systems reviewed & are unremarkable except as noted in HPI & below Physical Exam Physical Exam: General: no acute distress, WDWN Head: normocephalic, atraumatic Eyes: PERRL, EOM's intact, conjunctiva non-injected, anicteric ENT: normal inspection external ears, nose, mucous membranes moist Neck: supple, trachea midline, surgical dressing in place is dry and intact, ALBERT drain in place with serosanguineous drainage Lungs: clear, no respiratory distress, no wheezing/rhonchi/rales CV: RRR, systolic murmur, no pretibial edema Abd: normal BS, soft, non-tender Ext: no cyanosis, no calf tenderness; ROM upper and lower extremities intact, upper and lower extremities with distal pulses intact, brisk capillary refill, sensation to light touch intact Neuro: A&O x 3, no focal deficits noted, normal affect Skin: warm, dry Results & Data ([facility]) Vital Signs (Past 12 Hours) Vital Signs Temp Pulse Pulse Pulse Resp BP Pulse Ox 09/16/19 14:36 36.6 C 59 L 16 149/71 H 98 09/16/19 13:20 36.6 C 59 L 16 135/63 97 09/16/19 12:20 62 18 148/69 H 97 09/16/19 11:47 55 L 16 148/66 H 100 09/16/19 11:41 54 L 14 100 09/16/19 11:20 36.5 C 54 L 18 146/72 H 100 09/16/19 11:06 36.5 C 56 L 18 167/68 H 100 09/16/19 11:05 09/16/19 10:50 37.0 C 56 L 16 151/63 H 99 09/16/19 10:40 57 L 12 166/72 H 100 09/16/19 10:30 54 L 12 125/60 100 09/16/19 10:20 52 L 12 125/57 L 100 09/16/19 10:10 51 L 10 L 131/59 L 100 09/16/19 10:01 36.0 C L 61 14 123/57 L 100 09/16/19 06:47 36.5 C 77 18 140/79 99 Pulse Ox 09/16/19 14:36 09/16/19 13:20 09/16/19 12:20 09/16/19 11:47 09/16/19 11:41 09/16/19 11:20 09/16/19 11:06 09/16/19 11:05 100 09/16/19 10:50 09/16/19 10:40 09/16/19 10:30 09/16/19 10:20 09/16/19 10:10 09/16/19 10:01 09/16/19 06:47
[2019-09-16] MEDS ORDERED: GLUCOSE 40% GEL 15 GM TUBE PO PRN (14:52)
[2019-09-16] MEDS ORDERED: GLUCOSE 10 TABS/TUBE PO PRN (14:52)
[2019-09-16] MEDS ORDERED: GLUCAGON FOR INJ 1 MG VIAL SQ PRN (14:52)
[2019-09-16] MEDS ORDERED: DEXTROSE 50% 50 ML SYRINGE IV PRN (14:52)
[2019-09-16] MEDS ORDERED: CARBOHYDRATES FOR HYPOGLYCEMIA PO PRN (14:52)
[2019-09-16] MEDS: CEFAZOLIN 2000MG 2,000 MG/15 ML SYR IV SCH ×2 (16:48→23:30)
[2019-09-16] MEDS: CHLORASEPTIC 1.4% SOLN 180 ML BTL MT PRN (17:50)
[2019-09-16] MEDS: INSULIN ASPART 100 UNITS/ML 3 ML PEN SC SCH ×2 (17:53→20:39)
[2019-09-16] MEDS ORDERED: LIDOCAINE 2% JELLY 5 ML TUBE EXT PRN (20:30)
[2019-09-16] MEDS: PANTOprazole 40 MG TAB PO SCH (20:37)
[2019-09-16] MEDS: GABAPENTIN 400 MG CAP PO SCH (20:37)
[2019-09-16] MEDS: CEROVITE ADV FORMULA TAB PO SCH (20:37)
[2019-09-16] MEDS: INSULIN GLARGINE SOLOSTAR 100 UNITS/ML 3 ML PEN SC SCH (20:40)
[2019-09-16] MEDS ORDERED: lisinopriL 10 MG TAB PO SCH (21:00)
[2019-09-16] MEDS ORDERED: ATORVASTATIN 20 MG TAB PO SCH (21:00)
[2019-09-16] MEDS ORDERED: TAMSULOSIN HCL 0.4 MG CAP PO SCH (21:00)
[2019-09-16] MEDS ORDERED: DOCUSATE SODIUM/SENNA 50/8.6MG TAB PO SCH (21:00)
[2019-09-16] MEDS ORDERED: HydrALAZINE HCL 20 MG/ML VIAL IV ONE (22:38)
[2019-09-16 23:33] LABS: BUN Creatinine Ratio 12.3 (10-20); Calcium 7.8 mg/dl (8.5-10.1); Creatinine Clr Calc Pharmacy 56.7 ml/min; Est GFR (African American) 63.2; Est GFR (Non-African American) 54.5; Magnesium 1.7 mg/dl (1.8-2.4); Potassium 3.8 mmol/L (3.5-5.1)
[2019-09-17] MEDS: OXYCODONE HCL IR 5 MG TAB (IMMEDIATE RELEASE) PO PRN ×2 (00:29→07:32)
[2019-09-17] MEDS: CHLORASEPTIC 1.4% SOLN 180 ML BTL MT PRN ×2 (00:31→06:03)
[2019-09-17] MEDS ORDERED: MAGNESIUM SULFATE / D5W 1 GM/100 ML BAG IV ONE (00:44)
[2019-09-17] MEDS ORDERED: NORMOSOL-R 1,000 ML IV ONE (00:46)
[2019-09-17] MEDS ORDERED: lisinopriL 10 MG TAB PO STA (00:47)
[2019-09-17 05:45] LABS: Basophils # (auto) 0.01 K/uL (0-0.2); Basophils % (auto) 0.2 %; Eosinophils % (auto) 4.8 %; Hematocrit (blood only) 30.5 % (42-52); Hemoglobin 10.1 g/dL (14.0-18.0); Immature Granulocytes # (auto) 0.01 K/uL (0.00-0.02); Immature Granulocytes % (auto) 0.2 %; Lymphocytes # (auto) 1.26 K/uL (1.2-3.4); Lymphocytes % (auto) 30.5 %; Mean Corpuscular Hemoglobin 29.4 pg (25-34); Mean Corpuscular Hgb Conc 33.1 g/dL (32-36); Mean Corpuscular Volume 88.7 fL (80-100); Mean Platelet Volume 9.4 fL (7.4-10.4); Monocytes # (auto) 0.31 K/uL (0.11-0.59); Monocytes % (auto) 7.5 %; Neutrophils # (auto) 2.34 K/uL (1.4-6.5); Neutrophils % (auto) 56.8 %; Platelet Count 170 K/uL (130-400); RDW Coefficient of Variation 14.1 % (11.5-14.5); RDW Standard Deviation 45.7 fL (36.4-46.3); Red Blood Count 3.44 M/uL (4.7-6.1); White Blood Count 4.13 K/uL (4.8-10.8)
[2019-09-17] MEDS ORDERED: lisinopriL 10 MG TAB PO SCH (06:00)
[2019-09-17 06:20] LABS: BUN Creatinine Ratio 12.2 (10-20); Calcium 7.9 mg/dl (8.5-10.1); Creatinine Clr Calc Pharmacy 59.9 ml/min; Est GFR (African American) 67.6; Est GFR (Non-African American) 58.3; Potassium 3.6 mmol/L (3.5-5.1)
[2019-09-17] MEDS ORDERED: LEVOTHYROXINE SODIUM 25 MCG TABLET PO SCH (06:30)
--- NOTE | 2019-09-17 06:55 | CT Scan Report ---
HEAD CT NONCONTRAST CT DOSE: 614.27 mGy.cm HISTORY: Headache. TECHNIQUE: Multiaxial CT images of the head were performed without the use of intravenous contrast. A utomated exposure control was utilized for this study. A dose lowering technique was utilized adheri ng to the principles of ALARA. Comparison: None. Findings: Mild mucosal thickening within the right maxillary sinus. The mastoid air cells are clear. The calvarium and skull base are intact. There is no mass, hematoma, midline shift, acute infarct. Wh ite matter hypodensity is nonspecific but suggestive of microvascular ischemic change. The ventricles and sulci demonstrate mild age-related involutional changes. A few old small scattered infarcts are noted. Impression: No acute intracranial abnormality. Atrophy and microvascular ischemic changes. ACT 112: Negative or not required by law. Electronically signed by: Jeffery Wheatley M.D. 09/17/2019 6:53 AM
[2019-09-17] MEDS: CEROVITE ADV FORMULA TAB PO SCH (08:43)
[2019-09-17] MEDS: GABAPENTIN 400 MG CAP PO SCH (08:44)
[2019-09-17] MEDS: PANTOprazole 40 MG TAB PO SCH (08:44)
[2019-09-17] MEDS: INSULIN GLARGINE SOLOSTAR 100 UNITS/ML 3 ML PEN SC SCH (08:46)
[2019-09-17] MEDS: INSULIN ASPART 100 UNITS/ML 3 ML PEN SC SCH ×2 (08:48→12:59)
[2019-09-17] MEDS ORDERED: dilTIAZem HCL 120 MG CAPCR PO SCH (09:00)
[2019-09-17] MEDS ORDERED: BUMETANIDE 1 MG TAB PO SCH (09:00)
[2019-09-17] MEDS ORDERED: CYANOCOBALAMIN 500 MCG TABLET (VITAMIN B-12) PO SCH (09:00)
[2019-09-17] MEDS ORDERED: METOPROLOL TARTRATE 50 MG TAB PO SCH (09:00)
[2019-09-17] MEDS ORDERED: dilTIAZem HCL 180 MG CAPCR PO SCH (09:00)
[2019-09-17] MEDS: POLYETHYLENE (MIRALAX) 17 GM PACK PO SCH ×2 (09:09→12:07)
--- NOTE | 2019-09-17 11:01 | Discharge Summary ---
Date of Service September 17, 2019 Admission HPI Per Admitting Provider This is a 74-year-old male well-known to us having undergone a previous cervical surgery many years ago. He presents with marked decline in status over the past several months with progressive weakness of the bilateral upper extremities lower extremities and marked decline in balance. In fact he had a recent fall injuring his right upper extremity. Principal Diagnosis Cervical spinal stenosis with myelopathy Discharge Data Allergies Allergy/AdvReac Type Severity Reaction Status Date / Time No Known Allergies Allergy Verified 09/16/19 06:31 Consultations 09/16/19 14:41 Consult Hospitalist Routine Procedures Performed Operation Date: 09/16/19 07:45 Actual Procedures p C3-C4 Anterior Cervical Discectomy Fusion, Spinal Cord Monitoring(Not Applicable) - Seymour Valerio DO Ordered Studies 09/16/19 07:00 FL cervical 2-3V Routine FL fluoroscopy <1hr Routine 09/16/19 23:12 CT head/brain wo con Urgent Hospital Course (1) Myelopathy concurrent with and due to spinal stenosis of cervical region: Patient underwent anterior cervical discectomy and fusion C3-C4. He tolerated this well was taken to orthopedic for postoperative. Postop day 1 arm symptoms were improved. He is swallowing well. No hoarseness. Good strength testing. ALBERT drain decreasing appropriately. Subsequent discharge home. Discharge orders and instructions found in the chart for further review. Total Time Total Time Spent Total Time Spent (In Minutes): 20 minutes Discharge Plan Discharge Items Patient Disposition: Home - Self-Care Reason For Visit: Spinal Stenosis, Cervical Region Discharge Diagnosis: Cervical spinal stenosis with myeloradiculopathy Activity: As commented below Non-emergency contact: Primary Care Provider Call non-emergency contact if: you have any medication questions Follow-up/Referrals: Yudith Krueger M.D. [Primary Care Provider] - Diet: Regular Addtl Attending Provider Instructions: ACTIVITY RECOMMENDATIONS: SELF CARE INSTRUCTIONS AFTER CERVICAL FUSIONS 1. No smoking. Smoking drastically decreases the chance of a solid fusion. 2. No bending, lifting more than 5 pounds, or twisting (roll like a log when turning in bed). 3. You may shower 3 days after surgery. Thoroughly dry wound. Do not soak in the tub. 4. Cervical collar: Must be worn at all times including sleeping. You may remove the brace only to bath, eat and if you are sitting in a recliner. 5. Please walk as much as you can for exercise. Gradually increase the distance that you walk as your endurance increases. SPECIAL CARE INSTRUCTIONS: VERY IMPORTANT TO READ AND REVIEW A. Do not take any anti-inflammatory medications (i.e. Indocin, Advil, Aspirin, Naprosyn, Aleve, Motrin, etc.) as these may inhibit the chance of a solid fusion. Tylenol is okay to take. B. Your surgical incision has been closed with a cosmetic suture under the skin that will dissolve in about 6 weeks. In 14 days, you can use a pair of clean scissors and cut the suture that is left outside of the skin at the ends of your incision. C. Complications are uncommon, but please contact us if you have any signs or symptoms of: 1. wound infection (fever higher than 102.5 degrees F, redness, separation of wound, drainage, or increasing pain from the incision) 2. blood clots in legs (pain, swelling, redness and warmth in legs) 3. urinary tract infection (fever higher than 102.5 degrees, burning upon urination or increased frequency of urination) 4. nerve problems (inability to walk on your toes or heels, numbness, loss of bowel or bladder control) 5. any other symptoms that concern you. D. Please call the office at if you have any concerns or questions about your operation or recovery. MANAGING PAIN AFTER SPINAL SURGERY 1. Narcotic medication is intended for short-term use and will be provided for surgical pain. Surgical pain usually lasts for a period of 4-6 weeks. Narcotic medication includes Percocet, Vicodin, Darvocet, Tylenol #3 or Lortab. 2. Longer-term pain is more appropriately treated with non-narcotic medication such as Tylenol ES. 3. Muscle spasm is not appropriately treated with narcotics. Muscle relaxers such as Soma, Flexeril or Skelaxin can be used along with Tylenol ES. 4. Remember that we all live with some "aches and pains". This is not unusual or uncommon after an injury or as we get older. 5. We will provide appropriate medication within the normal guidelines of their prescribed use. We will also be very cautious and aware of potential abuse and extended duration of patients' medication needs. 6. Please allow 2-3 days to process refills. Prescriptions will not be mailed but must be picked up at the office. FOLLOW UP VISIT: Keep your scheduled follow-up appointment. Any questions, please call the office at . Pending Studies at Discharge: No Stand-Alone Forms: [facility], Smoking Cessation Medications and DC Order Prescriptions: New tramadol 50 mg tablet 50 mg PO Q6H PRN (Reason: pain, moderate) Qty: 10 RF: 0 oxycodone 5 mg tablet 5 mg PO Q6H PRN (Reason: pain, severe) Qty: 10 RF: 0 Continued Ocuvite with Lutein 1,000 unit-200 mg-60 unit-2 mg Tablet 1 tab PO BID RF: 0 atorvastatin 40 mg Tablet 20 mg PO HS RF: 0 clopidogrel [Plavix] 75 mg Tablet 75 mg PO QAM RF: 0 diclofenac sodium [Voltaren] 1 % Gel 2 g TOPICAL BID PRN (Reason: Pain) RF: 0 Eliquis 5 mg Tablet 5 mg PO BID RF: 0 Lantus U-100 Insulin 100 unit/mL Solution 20 unit SUBCUT BID RF: 0 levothyroxine [Synthroid] 25 mcg Tablet 25 mcg PO QAM RF: 0 tamsulosin 0.4 mg Capsule 0.4 mg PO HS RF: 0 metoprolol tartrate [Lopressor] 50 mg Tablet 50 mg PO QAM RF: 0 oxycodone 5 mg Tablet 5 mg PO 5XD PRN (Reason: Pain) RF: 0 Eucerin Cream 1 applic TOPICAL BID PRN (Reason: Rash) RF: 0 omeprazole 20 mg Tablet,Delayed Release (Dr/Ec) 40 mg PO BID RF: 0 lidocaine 5 % Gel 1 dose Topical UD PRN (Reason: Rash) RF: 0 gabapentin 400 mg Capsule 800 mg PO BID RF: 0 metformin 500 mg Tablet Extended Release 24 Hr 500 mg PO QAM RF: 0 Jardiance 25 mg Tablet 25 mg PO QAM RF: 0 bumetanide 0.5 mg Tablet 0.5 mg PO QAM RF: 0 lisinopril [Zestril] 10 mg Tablet 10 mg PO BID RF: 0 cyanocobalamin (vitamin B-12) 1,000 mcg Capsule 1,000 mcg PO QAM RF: 0 Discontinued diltiazem HCl [Cardizem CD] 180 mg Capsule,Extended Release 24hr 180 mg PO DAILY RF: 0 Discharge Orders: Discharge Order (Routine); Ordered 09/17/19 Ordered By: Seymour Valerio Admission Data Admit Date/Time: 09/16/19 10:04 Attending Provider: Seymour Valerio Admit Provider: Seymour Valerio Primary Care Provider: Yudith Krueger Other Providers: Renee Amaya ; Dawood Garcia
[2019-09-17 11:14] VITALS: TEMP 98.4; O2SAT 94
[2019-09-17 12:11] VITALS: BP 163/74; PULSE 58
--- NOTE | 2019-09-17 16:41 | Hospitalist Progress Note ---
Date of Service September 17, 2019 Assessment & Plan (1) S/P cervical discectomy: Post op day#1 S/P C3-C4 discectomy performed by Dr Valerio No post op complication Pain control Denies any airway compromise PT/OT Hgb 10.1 today stable (2) Chronic atrial fibrillation: Rate controlled Continue metoprolol Eliquis was placed on hold Please resume Eliquis when OK by ortho (3) HTN (hypertension): BP elevated Continue diltiazem, metoprolol Will resume Lisinopril, bumetanide (4) Diabetes mellitus, type 2: Insulin dependent A1c: 8.1 in 06/2019 reported in PCP notes Continue to hold metformin, Jardiance Continue home Lantus On NovoLog sliding scale per protocol Continue monitor BS (5) Stroke: No residual reported Plavix on hold OK to resume when ok by ortho spine (6) CKD (chronic kidney disease), stage III: Creatinine 1.23 today Avoid nephrotoxic agents when possible Stable (7) Chronic anemia: Preop hemoglobin: 10.7 Hemoglobin 10.1 today Stable (8) BPH (benign prostatic hyperplasia): Continue tamsulosin (9) Hypothyroidism: Continue levothyroxine DVT Prophylaxis SCDs per ortho Admission and Anticipated Discharge Date Admission Date: September 16, 2019 Subjective Pt was seen and examined Lying in bed with no distress Pt said that pain is controlled Denies any chest pain, palpitation, dizziness and SOB Physical Exam Physical Exam: General- No acute distress Head- atraumatic Eyes- PERRL, EOMI, ENT- oropharynx clear Neck- supple, no JVD, +ALBERT drain Lungs- clear to auscultation Heart- regular rhythm; +murmur Abdomen- normal bowel sounds, soft, nontender Extremities- no calf tenderness Neuro- alert, oriented x 3; PERRL, EOMI; no facial palsy; no dysarthria Skin- warm & dry Results & Data Results & Data ([facility]) Vital Signs (Past 12 Hours) Vital Signs Temp Pulse Pulse Resp BP BP Pulse Ox 09/17/19 12:08 36.9 C 58 L 69 16 163/74 H 175/79 H 94 09/17/19 10:20 36.9 C 69 16 175/79 H 94 09/17/19 08:20 36.5 C 68 14 167/72 H 93 04/28/20 07:15 61 14 94 09/17/19 05:59 36.8 C 71 18 163/74 H 94 09/17/19 05:02 36.9 C 58 L 16 171/69 H 95
[2019-09-18] MEDS ORDERED: bisacodyL 10 MG SUPP PR PRN (09:34)
== END 2019-09-17 13:36 | disposition home or self-care (01) | DRG 30 ==
LOC: ASU 05:44 → 3E 10:04